=== PATIENT | male | born 1930 | race Caucasian/White ===

== ENCOUNTER 2019-10-15 07:44 | Emergency (ER) | payer OTHER ==
[~2019-10-15] VITALS: Ht 170.2 cm; Wt 99.8 kg
[~2019-10-15 07:44] MED LIST: ACET325 PO; ACET500 PO; ALBIPROI INH; AZIT500 PO; Belladonna-Opi1 EACH RC; CEFA500; CIPR500 PO; CODGUAEL PO; Ciprodex Otic7.5 ML RIGHTEAR; Colace100 MG PO; DOXY100; DOXY100T53 PO; ENABLEX PO; FINA5 PO; HYDGUAL120 PO; LEVSOD50 PO; MECL12.5 PO; METO25ER PO; METO50 PO; MULTIVITAMIN PO; MYRBETRIQ50 MG PO; NAPR220 PO; PSEU120ER PO; SOLI5 PO; Spironolactone1 EACH PO; Sudogest30 MG PO; TAMS.4ER; TRIA50 PO; TRIHYD253A PO; TRIHYD253B PO; Toviaz4 MG PO; Toviaz8 MG PO
[2019-10-15] MEDS ORDERED: Ventolin/Prove6.7 GM INH (08:06)
[2019-10-15 08:27] LABS: BASOPHILS ABSOLUTE AUTO 0.11 K/mm3 (0.00-0.23); BASOPHILS PERCENT AUTO 1 % (0-2); EOSINOPHILS ABSOLUTE AUTO 0.47 K/mm3 (0.00-0.68); EOSINOPHILS PERCENT AUTO 4 % (0-6); Hematocrit 48.9 % (37.0-53.0); Hemoglobin 15.9 g/dL (13.5-17.5); IMMATURE GRAN ABSOLUTE AUTO 0.07 K/mm3 (0.00-0.10); IMMATURE GRAN PERCENT AUTO 1 % (0-1); LYMPHOCYTES ABSOLUTE AUTO 3.33 K/mm3 (0.84-5.20); LYMPHOCYTES PERCENT AUTO 27 % (21-46); MONOCYTES PERCENT AUTO 9 % (4-13); Mean Corpuscular HGB 30.6 pg (26.0-34.0); Mean Corpuscular HGB Conc 32.5 g/dL (31.5-36.5); Mean Corpuscular Volume 94 fL (80-100); Mean Platelet Volume 9.2 fL (9.1-12.4); NEUTROPHILS ABSOLUTE AUTO 7.24 K/mm3 (1.96-9.15); NEUTROPHILS PERCENT AUTO 59 % (41-73); Platelet Count 245 K/mm3 (150-400); RDW Coefficient Variation 13.4 % (11.7-14.2); RDW Standard Deviation 46.2 fL (35.1-46.3); White Blood Cell Count 12.32 K/mm3 (4.00-11.30)
[2019-10-15 08:39] LABS: Alanine Aminotransfer (ALT/SGP 33 U/L (12-78); Albumin, Blood 3.7 g/dL (3.4-5.0); Alk Phos 73 U/L (50-136); Anion Gap 4 mmol/L (6-16); Aspartate Aminotrans (AST/SGOT 32 U/L (12-37); Bilirubin, Total 0.4 mg/dL (0.1-1.0); Blood Urea Nitrogen 21 mg/dL (8-24); Bun/Creatinine Ratio 21.7 (12.0-20.0); CO2, Blood 32 mmol/L (21-32); Calcium, Blood 8.6 mg/dL (8.5-10.1); Chloride, Blood 103 mmol/L (98-108); Creatinine, Blood 0.97 mg/dL (0.60-1.20); Globulin, Blood 3.8 g/dL (2.2-4.0); Glomerular Filtration Rate >60 (60-); Glucose, Blood 103 mg/dL (70-99); Potassium, Blood 4.3 mmol/L (3.5-5.5); Sodium, Blood 139 mmol/L (136-145); Total Protein, Blood 7.5 g/dL (6.4-8.2); Troponin I <0.015 ng/mL (0.000-0.040)
[2019-10-15] MEDS ORDERED: Prednisone20 MG PO (10:22)
== END 2019-10-15 10:31 | disposition home or self-care (01) ==
LOC: ER 07:44
PROVIDERS: Emergency Medicine
DX: J45.901 Unspecified asthma with (acute) exacerbation (principal); I10 Essential (primary) hypertension; E03.9 Hypothyroidism, unspecified; Z88.0 Allergy status to penicillin; Z79.899 Other long term (current) drug therapy; Z79.51 Long term (current) use of inhaled steroids
CPT/HCPCS: 36415; 71046; 80053; 84484; 85025; 93005; 93010; 94640; 94644; 96374; 99285-25; J2930

== ENCOUNTER 2019-10-16 21:40 | Inpatient (IN) | payer OTHER ==
[~2019-10-16] VITALS: Ht 170.2 cm; Wt 105.2 kg
[~2019-10-16 21:40] MED LIST changes: +Prednisone20 MG PO; +Ventolin/Prove6.7 GM INH
[2019-10-16 22:01] LABS: BASOPHILS ABSOLUTE AUTO 0.03 K/mm3 (0.00-0.23); BASOPHILS PERCENT AUTO 0 % (0-2); EOSINOPHILS ABSOLUTE AUTO 0.02 K/mm3 (0.00-0.68); EOSINOPHILS PERCENT AUTO 0 % (0-6); Hematocrit 44.7 % (37.0-53.0); Hemoglobin 14.4 g/dL (13.5-17.5); IMMATURE GRAN ABSOLUTE AUTO 0.28 K/mm3 (0.00-0.10); IMMATURE GRAN PERCENT AUTO 1 % (0-1); LYMPHOCYTES ABSOLUTE AUTO 1.53 K/mm3 (0.84-5.20); LYMPHOCYTES PERCENT AUTO 7 % (21-46); MONOCYTES ABSOLUTE AUTO 0.93 K/mm3 (0.16-1.47); MONOCYTES PERCENT AUTO 4 % (4-13); Mean Corpuscular HGB 29.9 pg (26.0-34.0); Mean Corpuscular HGB Conc 32.2 g/dL (31.5-36.5); Mean Corpuscular Volume 93 fL (80-100); Mean Platelet Volume 9.1 fL (9.1-12.4); NEUTROPHILS ABSOLUTE AUTO 20.17 K/mm3 (1.96-9.15); NEUTROPHILS PERCENT AUTO 88 % (41-73); Platelet Count 251 K/mm3 (150-400); RDW Coefficient Variation 13.6 % (11.7-14.2); RDW Standard Deviation 46.1 fL (35.1-46.3); Red Blood Cell Count 4.82 M/mm3 (4.30-5.90); White Blood Cell Count 22.96 K/mm3 (4.00-11.30)
[2019-10-16 22:16] LABS: Alanine Aminotransfer (ALT/SGP 36 U/L (12-78); Albumin, Blood 3.7 g/dL (3.4-5.0); Albumin/Globulin Ratio 1.1 (0.8-1.8); Alk Phos 49 U/L (50-136); Anion Gap 9 mmol/L (6-16); Aspartate Aminotrans (AST/SGOT 32 U/L (12-37); Bilirubin, Total 0.7 mg/dL (0.1-1.0); Blood Urea Nitrogen 23 mg/dL (8-24); Bun/Creatinine Ratio 22.8 (12.0-20.0); CO2, Blood 27 mmol/L (21-32); Calcium, Blood 8.5 mg/dL (8.5-10.1); Chloride, Blood 100 mmol/L (98-108); Creatinine, Blood 1.01 mg/dL (0.60-1.20); Globulin, Blood 3.5 g/dL (2.2-4.0); Glomerular Filtration Rate >60 (60-); Glucose, Blood 85 mg/dL (70-99); Sodium, Blood 136 mmol/L (136-145); Total Protein, Blood 7.2 g/dL (6.4-8.2); Troponin I <0.015 ng/mL (0.000-0.040)
[2019-10-16 22:41] LABS: PCO2 Arterial 32.8 mmHg (35-45); PO2 Arterial 54.5 mmHg (80-100); pH Blood Arterial 7.48 (7.35-7.45)
[2019-10-17 00:08] LABS: Influenza A Negative (NEGATIVE); Influenza B Negative (NEGATIVE)
[2019-10-17] MEDS ORDERED: MOTION RELIEF25 MG PO (01:53)
[2019-10-17] MEDS ORDERED: DOXY100 PO (01:57)
[2019-10-17] MEDS ORDERED: PHENERGAN/CODEINE PO (01:59)
[2019-10-17] MEDS ORDERED: METO50 PO (02:00)
[2019-10-17 02:33] LABS: BASOPHILS ABSOLUTE AUTO 0.05 K/mm3 (0.00-0.23); BASOPHILS PERCENT AUTO 0 % (0-2); EOSINOPHILS PERCENT AUTO 0 % (0-6); Hematocrit 42.3 % (37.0-53.0); Hemoglobin 14.1 g/dL (13.5-17.5); IMMATURE GRAN ABSOLUTE AUTO 0.75 K/mm3 (0.00-0.10); IMMATURE GRAN PERCENT AUTO 3 % (0-1); LYMPHOCYTES ABSOLUTE AUTO 1.55 K/mm3 (0.84-5.20); LYMPHOCYTES PERCENT AUTO 7 % (21-46); MONOCYTES ABSOLUTE AUTO 1.61 K/mm3 (0.16-1.47); MONOCYTES PERCENT AUTO 7 % (4-13); Mean Corpuscular HGB 30.8 pg (26.0-34.0); Mean Corpuscular HGB Conc 33.3 g/dL (31.5-36.5); Mean Corpuscular Volume 92 fL (80-100); NEUTROPHILS ABSOLUTE AUTO 18.95 K/mm3 (1.96-9.15); NEUTROPHILS PERCENT AUTO 83 % (41-73); Platelet Count 211 K/mm3 (150-400); RDW Coefficient Variation 13.7 % (11.7-14.2); RDW Standard Deviation 46.6 fL (35.1-46.3); Red Blood Cell Count 4.58 M/mm3 (4.30-5.90); White Blood Cell Count 22.91 K/mm3 (4.00-11.30)
[2019-10-17 02:49] LABS: Anion Gap 9 mmol/L (6-16); Blood Urea Nitrogen 23 mg/dL (8-24); Bun/Creatinine Ratio 22.1 (12.0-20.0); CO2, Blood 24 mmol/L (21-32); Calcium, Blood 7.7 mg/dL (8.5-10.1); Chloride, Blood 104 mmol/L (98-108); Creatinine, Blood 1.04 mg/dL (0.60-1.20); Glomerular Filtration Rate >60 (60-); Glucose, Blood 104 mg/dL (70-99); Potassium, Blood 3.3 mmol/L (3.5-5.5); Sodium, Blood 137 mmol/L (136-145)
[2019-10-17 03:57] LABS: Adenovirus Not Detected (NOT DETECT); Bordetella pertussis Not Detected (NOT DETECT); Chlamydophila pneumoniae Not Detected (NOT DETECT); Coronavirus 229E Not Detected (NOT DETECT); Coronavirus HKU1 Not Detected (NOT DETECT); Coronavirus NL63 Not Detected (NOT DETECT); Coronavirus OC43 Not Detected (NOT DETECT); Human Metapneumovirus Not Detected (NOT DETECT); Human Rhinovirus/Enterovirus Not Detected (NOT DETECT); Influenza A Not Detected (NOT DETECT); Influenza A/2009-H1 Not Detected (NOT DETECT); Influenza A/H1 Not Detected (NOT DETECT); Influenza A/H3 Not Detected (NOT DETECT); Influenza B Not Detected (NOT DETECT); Mycoplasma pneumoniae Not Detected (NOT DETECT); Parainfluenza Virus 1 Not Detected (NOT DETECT); Parainfluenza Virus 2 Not Detected (NOT DETECT); Parainfluenza Virus 3 Not Detected (NOT DETECT); Parainfluenza Virus 4 Not Detected (NOT DETECT); Respiratory Syncytial Virus Not Detected (NOT DETECT)
--- NOTE | 2019-10-17 05:59 | NUR ---
END OF SHIFT SUMMARY PT TO UNIT FROM ED. VISIBLY SOB WITH COUGHING. RT TO ROOM FOR ALBUTEROL TREATMENT. FLUIDS RUNNING WO UPON ADMISSION, NO ORDERS PLACED FOR CONTINUED FLUIDS AFTER THAT 2ND LITER OF NS. IV SL. VSS POST ADMIT. ADMISSION PACKET COMPLETED. DNR BAND IN PLACE. PT HAS REMAINED ON RA, SPO2 >94%. LACTIC ACID TRENDING DOWN. RESP PCR PANEL OBTAINED, NEGATIVE. PT IS KNOWN TO ASPIRATE PER DAUGHTER, WILL DISCUSS WITH ONCOMING RN. DAUGHTER IN ROOM FOR ADMISSION, ASSISTED WITH THIS PROCESS. WILL BE RETURNING LATER TODAY. PT DOES NOT USE CALL LIGHT APPROPRIATELY AND IMPULSIVELY GETS OUT OF BED, BED ALARM IN PLACE. WILL CONTINUE TO MONITOR UNTIL SHIFT CHANGE.
--- NOTE | 2019-10-17 06:50 | NUR ---
PROVIDER DR. CLAIRE TO ROOM. VOICED CONCERN REGARDING DAUGHTER STATING PT HAD BARIUM SWALLOW THAT SHOWED THAT THE PT SILENTLY ASPIRATES, ASKED PROVIDER IF HE WANTED SPEECH EVAL. DECLINES BUT PLACES NURSE NOTIFY TO HAVE PT UPRIGHT WHILE EATING/DRINKING. ORDERS ALSO PLACED FOR NEW LACTIC ACID LAB.
--- NOTE | 2019-10-17 12:58 | NUR ---
Spiritual care visit conducted. Patient is lying in bed and alert. Patient's spouse, Aniyah is bedside. Patient is quiet and not very talkative but Aniyah is a little more communative. They tell me about their janelle (they attended the [employer], [facility]) and about the patient's current medical issues. I listen empathically and provide prayer. Patient and Aniyah respond well and thank me for the visit.
--- NOTE | 2019-10-17 15:45 | NUR ---
Brief visit this afternoon. Pt resting in bed with his eyes closed upon arrival. Pt wakes with gentle voice. Pt deneis pain and dyspnea at this time. Pt appears comfortable with no S/S of distress. Pt requests visit occured at a later time and states he is feeling tired and has visitors all day. Pt agreeable with visit later today or tomorrow. Spoke with bedside MAXIMO Luis and discussed case. Paliative Care will remain available.
--- NOTE | 2019-10-17 18:13 | NUR ---
SHIFT NOTE PT'S LACTIC ACID HAS NOTED TO HAVE INCREASED T/O THIS SHIFT, DR CLAIRE IS INFORMED OF LACTIC ACID AND THAT VITAL SIGNS ARE CURRENTLY STABLE, NEW ORDER OBTAINED FOR NS AT 150/HR AND REPEAT LACTIC AT 1800. PT STS THAT HE DOES NOT FEEL ANY DIFFERENT, STS THAT HE IS NO MORE SOB THAN HE HAS BEEN. NOTED WHEEZE PRIOR TO BEGINING FLUIDS. FAMILY ARRIVES AROUND 1700 EXPRESSED CONCERN THAT PT IS NOT ON OXYGEN, FAMILY DID NOT SEEM RECEPTIVE OF EDUCATION AND THEN QUESTIONED DR CLAIRE ABOUT ORDERS, THERE WAS NO ORDERS FROM DR CLAIRE TO ADMNINISTER OXYGEN. WILL UPDATE RT WITH NEW BNP RESULTS AND LACTIC ONCE RESULTS FROM 1800 DRAW HAVE RETURNED
[2019-10-18 05:09] LABS: BASOPHILS ABSOLUTE AUTO 0.03 K/mm3 (0.00-0.23); BASOPHILS PERCENT AUTO 0 % (0-2); EOSINOPHILS PERCENT AUTO 0 % (0-6); Hematocrit 39.3 % (37.0-53.0); Hemoglobin 12.8 g/dL (13.5-17.5); IMMATURE GRAN ABSOLUTE AUTO 0.49 K/mm3 (0.00-0.10); IMMATURE GRAN PERCENT AUTO 2 % (0-1); LYMPHOCYTES ABSOLUTE AUTO 0.94 K/mm3 (0.84-5.20); LYMPHOCYTES PERCENT AUTO 5 % (21-46); MONOCYTES ABSOLUTE AUTO 0.58 K/mm3 (0.16-1.47); MONOCYTES PERCENT AUTO 3 % (4-13); Mean Corpuscular HGB 30.1 pg (26.0-34.0); Mean Corpuscular HGB Conc 32.6 g/dL (31.5-36.5); Mean Corpuscular Volume 93 fL (80-100); Mean Platelet Volume 9.2 fL (9.1-12.4); NEUTROPHILS ABSOLUTE AUTO 18.39 K/mm3 (1.96-9.15); NEUTROPHILS PERCENT AUTO 90 % (41-73); Platelet Count 202 K/mm3 (150-400); RDW Coefficient Variation 13.7 % (11.7-14.2); RDW Standard Deviation 46.5 fL (35.1-46.3); Red Blood Cell Count 4.25 M/mm3 (4.30-5.90); White Blood Cell Count 20.43 K/mm3 (4.00-11.30)
--- NOTE | 2019-10-18 05:20 | NUR ---
END OF SHIFT SUMMARY NO ACUTE CHANGES THIS SHIFT. VSS. PT REMAINS ON RA, UPPER WHEEZES AND SOB WITH EXERTION BUT MANAGES TO STAND AND AMBULATE WITH LITTLE HELP FROM STAFF. FLUIDS CONTINUE TOINFUSE AT 150 ORDERED. 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 P HAS HAD TO BE CHANGES MULTIPLE TIME DUE TO VOIDING ON SELF BEFORE HE COULD GET TO URINAL OR FUMBLES WITH LID ON URINAL. DESPITE THIS, PT REMAINS PLEASNT AND COOPERATIVE. HAS HAD SCHEDULED RT TREATMENTS AD HAS OT REQUIRED ANY PRN'S. OTHERWISE, BED ALARM IN PLACE AND WILL CONTINUE TO MONITOR UNTIL SHIFT CHANGE.
[2019-10-18 05:27] LABS: Anion Gap 7 mmol/L (6-16); Blood Urea Nitrogen 20 mg/dL (8-24); Bun/Creatinine Ratio 25.8 (12.0-20.0); CO2, Blood 24 mmol/L (21-32); Calcium, Blood 7.8 mg/dL (8.5-10.1); Chloride, Blood 105 mmol/L (98-108); Creatinine, Blood 0.78 mg/dL (0.60-1.20); Glomerular Filtration Rate >60 (60-); Glucose, Blood 179 mg/dL (70-99); Potassium, Blood 3.8 mmol/L (3.5-5.5); Sodium, Blood 136 mmol/L (136-145)
--- NOTE | 2019-10-18 08:12 | NUR ---
Assisted pt out of bed for breakfast, to sit in the chair. Chair alarm on. He is pleasant and compliant, states that he is having shortness of breath with activity. None noted at rest. Encouraged oral intake of fluids, and deep breathing and coughing. NO productive cough as yet.
--- NOTE | 2019-10-18 09:08 | NUR ---
The pt called to request help from moving from the chair to the bed, to avoid setting the chair alarm off. He was assisted back to bed, simply minimal assistance needed. Telemetry box was removed, and scrap charger notified of status change.
--- NOTE | 2019-10-18 09:26 | NUR ---
Pt resting in bed with his eyes closed. No response with moderate level voice. This RN did not attempt to disturb Pt any further. Pt appears comfortable with no S/S of distress at this time. Spoke with bedside RN Bárbara and discussed case. Palliative Care will remain available.
--- NOTE | 2019-10-18 10:59 | NUR ---
Received call from bedside RN Bárbara and reports Pt would like to complete a POLST. Pt sitting on edge of bed upon arrival. Daughter in law Lily at bedside. Pt and daughter in law confirm Pt would like to complete a POLST. Educated on life sustaining measures with V/U made by Pt and Lily. Pt chooses DNR, Limited Treatment and signs POLST. Placed POLST on Pt's white board for Dr Dang to sign when making rounds. Pt reports SOB and is requesting a breathing treatment. FINANCIAL BUSINESS ANALYST calls RT. No other concerns reported at this time. Once POLST has MD signature will obtain copies for medical records and family. Palliative Care will remain available.
--- NOTE | 2019-10-18 12:10 | NUR ---
Telephone report was given to Peyton Muniz RN. The pt will be transferred to room 336 as soon as he is finished eating his lunch.
--- NOTE | 2019-10-18 12:27 | NUR ---
PT WAS TAKEN UP TO MEDICAL FLOOR AT THIS TIME, BY ISMAEL QUINONEZ. PT TRANSPORTED BY WHEELCHAIR.
--- NOTE | 2019-10-18 12:36 | NUR ---
ASSUMED CARE: RECEIVED REPORT FROM MAXIMO PENA. PT TRANSFERRED TO 336 FROM PCU VIA WHEEL CHAIR. IN BED, BED ALARM ON. DENIES NEEDS AT THIS TIME.
--- NOTE | 2019-10-18 16:21 | NUR ---
ASSUMED CARE OF PATIENT, FAMILY AT BEDSIDE FOR PORTION OF SHIFT. PATIENT UP FOR MEALS IN CHAIR, REMAINING UPRIGHT IN CHAIR POST MEALS FOR 30 MINUTES. PATIENT LUNGS ARE DIM AND WHEEZY AND PATIENT REPORTED FEELING TIRED AFTER GETTING UP AND GETTING A SHOWER. PATIENT IS A/O WITH BED AND CHAIR ALARMS TO REDUCE RISK OF FALL.
--- NOTE | 2019-10-18 17:54 | NUR ---
SHIFT SUMMARY ASSUMED CARE OF PATIENT MIDWAY THROUGH SHIFT. PATIENT RECEIVED SHOWER AND REPORTED SOB POST ACTIVITY. VS APPEAR STABLE AT THIS TIME. PROVIDER REQUESTED PATIENT BE UP IN CHAIR FOR MEALS AND TO AMBULATE TOLERATED.
--- NOTE | 2019-10-18 18:40 | NUR ---
DISCUSSED WITH PT NEED FOR NEW IV DUE TO [facility] START SITE THAT HAS BEEN IN SINCE THE . PT DECLINED SINCE HE MAY BE DC'ING TOMORROW. BED ALARM ON.
--- NOTE | 2019-10-19 17:22 | NUR ---
SHIFT SUMMARY PATIENT A/O. FAMILY AT BEDSIDE. PATIENT UP IN CHAIR FOR ALL MEALS. REPORTS IMPROVED BREATHING FROM BREATHING TRX AND ONLY REPORTING SOB POST ACTIVITY. PATIENT ENCOURAGED TO DRINK FLUIDS UP TO 2000 ML FOR 24 HR PERIOD. VS IMPROVING. PROVIDER THOUGHT PATIENT MAY BE ABLE TO D/C FROM HOSPITAL TOMORROW IF VS CONTINUE TO IMPROVE.
--- NOTE | 2019-10-20 00:11 | NUR ---
PATIENT STATES HE SEES SMOKE COMING OUT OF THE SMOKE DETECTOR IN HIS ROOM. CHECKED OZ SATS - 95% ORA. BED LOW AND LOCKED AND ALARMED. MADE AWARE.
[2019-10-20 05:13] LABS: BASOPHILS ABSOLUTE AUTO 0.08 K/mm3 (0.00-0.23); BASOPHILS PERCENT AUTO 1 % (0-2); EOSINOPHILS PERCENT AUTO 0 % (0-6); Hematocrit 39.2 % (37.0-53.0); IMMATURE GRAN ABSOLUTE AUTO 0.38 K/mm3 (0.00-0.10); IMMATURE GRAN PERCENT AUTO 3 % (0-1); LYMPHOCYTES ABSOLUTE AUTO 1.34 K/mm3 (0.84-5.20); LYMPHOCYTES PERCENT AUTO 9 % (21-46); MONOCYTES ABSOLUTE AUTO 0.58 K/mm3 (0.16-1.47); MONOCYTES PERCENT AUTO 4 % (4-13); Mean Corpuscular HGB Conc 33.2 g/dL (31.5-36.5); Mean Corpuscular Volume 91 fL (80-100); Mean Platelet Volume 9.5 fL (9.1-12.4); NEUTROPHILS ABSOLUTE AUTO 11.88 K/mm3 (1.96-9.15); NEUTROPHILS PERCENT AUTO 83 % (41-73); Platelet Count 250 K/mm3 (150-400); RDW Coefficient Variation 13.5 % (11.7-14.2); RDW Standard Deviation 45.1 fL (35.1-46.3); Red Blood Cell Count 4.33 M/mm3 (4.30-5.90); White Blood Cell Count 14.26 K/mm3 (4.00-11.30)
--- NOTE | 2019-10-20 07:25 | NUR ---
PT AOX4 THIS MORNING. DR CLAIRE WAS IN TO SEE HIM AND DISCUSSED D/C PLANS. PASSED INFO TO DAY RN.
[2019-10-20] MEDS ORDERED: Prednisone10 MG PO (09:54)
[2019-10-20] MEDS ORDERED: CEFP200 PO (09:56)
[2019-10-20] MEDS ORDERED: ALBU3IS INH (09:57)
[2019-10-20] MEDS ORDERED: ACET325 PO (10:02)
--- NOTE | 2019-10-20 10:10 | NUR ---
PROVIDER NOTIFICATION OBSERVED PATIENT DURING MEALTIME COUGHING. PROVIDER NOTIFIED BY PHONE. PROVIDER REQUESTED SPEECH EVAL DURING HOSPITAL STAY A VERBAL ORDER. SPEECH EVAL COMPLETED. THIS IS LATE ENTRY FROM THIS AM.
--- NOTE | 2019-10-20 10:23 | NUR ---
PER PHARMACY, OKY TO RUN ABX NOW.
--- NOTE | 2019-10-20 11:49 | NUR ---
DISCHARGE DISCHARGE INSTRUCTIONS PRESENTED TO PATIENT/FAMILY. FAMILY REQUESTED TO MAKE FOLLOW UP APPT ON OWN. PATIENT WHEELED OUT BY WC AND BY CAR FROM HOSPITAL. IV REMOVED. NO CHANGES IN ASSESSMENT PRIOR TO D/C.
== END 2019-10-20 11:50 | disposition home or self-care (01) | DRG 871 ==
LOC: ER 21:40 → PCU 23:21 → ER 23:21 → PCU 10-17 00:06 → MEDS 10-18 12:32 → PCU 10-18 12:32 → MEDS 10-18 12:32 → ENPENDDIS 10-20 07:00 → MEDS 10-20 11:50
PROVIDERS: Emergency Medicine; Internal Medicine; ADMIT Hospitalist
DX: A41.9 Sepsis, unspecified organism (principal); J18.9 Pneumonia, unspecified organism; J96.01 Acute respiratory failure with hypoxia; E87.2 Acidosis; J45.901 Unspecified asthma with (acute) exacerbation; E66.3 Overweight; E03.9 Hypothyroidism, unspecified; I10 Essential (primary) hypertension; N40.1 Benign prostatic hyperplasia with lower urinary tract symptoms; N39.41 Urge incontinence; E86.0 Dehydration; C61 Malignant neoplasm of prostate; Z88.0 Allergy status to penicillin; Z68.34 Body mass index [BMI] 34.0-34.9, adult
CPT/HCPCS: 0099U; 36415; 36600; 71046; 80048; 80053; 82803; 83605; 83735; 83880; 84145; 84484; 85025; 87040; 87804; 92610; 93005; 93010; 94640; 94760; 96365; 96367; 99285-25; J0456; J0696; J1650; J2930; J7030; J7050; J7512

== ENCOUNTER 2019-11-18 05:44 | Observation (INO) | payer OTHER ==
[~2019-11-18] VITALS: Ht 170.2 cm; Wt 110.5 kg
[~2019-11-18 05:44] MED LIST changes: +ALBU3IS INH; +CEFP200 PO; +DOXY100 PO; +MOTION RELIEF25 MG PO; +PHENERGAN/CODEINE PO; +Prednisone10 MG PO
[2019-11-18 06:15] LABS: BASOPHILS ABSOLUTE AUTO 0.05 K/mm3 (0.00-0.23); BASOPHILS PERCENT AUTO 1 % (0-2); EOSINOPHILS ABSOLUTE AUTO 0.41 K/mm3 (0.00-0.68); EOSINOPHILS PERCENT AUTO 6 % (0-6); Hematocrit 42.8 % (37.0-53.0); Hemoglobin 14.4 g/dL (13.5-17.5); IMMATURE GRAN ABSOLUTE AUTO 0.06 K/mm3 (0.00-0.10); IMMATURE GRAN PERCENT AUTO 1 % (0-1); LYMPHOCYTES ABSOLUTE AUTO 3.16 K/mm3 (0.84-5.20); LYMPHOCYTES PERCENT AUTO 47 % (21-46); MONOCYTES ABSOLUTE AUTO 0.67 K/mm3 (0.16-1.47); MONOCYTES PERCENT AUTO 10 % (4-13); Mean Corpuscular HGB 30.6 pg (26.0-34.0); Mean Corpuscular HGB Conc 33.6 g/dL (31.5-36.5); Mean Corpuscular Volume 91 fL (80-100); Mean Platelet Volume 8.6 fL (9.1-12.4); NEUTROPHILS PERCENT AUTO 36 % (41-73); Platelet Count 229 K/mm3 (150-400); RDW Coefficient Variation 13.3 % (11.7-14.2); RDW Standard Deviation 45.1 fL (35.1-46.3); White Blood Cell Count 6.75 K/mm3 (4.00-11.30)
[2019-11-18 06:42] LABS: Alanine Aminotransfer (ALT/SGP 30 U/L (12-78); Albumin, Blood 3.4 g/dL (3.4-5.0); Albumin/Globulin Ratio 0.9 (0.8-1.8); Anion Gap 6 mmol/L (6-16); Aspartate Aminotrans (AST/SGOT 24 U/L (12-37); Bilirubin, Total 0.4 mg/dL (0.1-1.0); Blood Urea Nitrogen 18 mg/dL (8-24); Bun/Creatinine Ratio 20.4 (12.0-20.0); CO2, Blood 24 mmol/L (21-32); Calcium, Blood 8.3 mg/dL (8.5-10.1); Chloride, Blood 107 mmol/L (98-108); Creatinine, Blood 0.88 mg/dL (0.60-1.20); Globulin, Blood 3.6 g/dL (2.2-4.0); Glomerular Filtration Rate >60 (60-); Glucose, Blood 98 mg/dL (70-99); Potassium, Blood 4.1 mmol/L (3.5-5.5); Sodium, Blood 137 mmol/L (136-145)
[2019-11-18 06:43] LABS: Alk Phos 73 U/L (50-136)
--- NOTE | 2019-11-18 12:55 | NUR ---
Dr Borja assessed the pt and stated that the shingles lesions are dry, crusted over, and no longer active. Marie in Infection Control was notified and the isolation order was entered to reflect the appropriate precautions.
[2019-11-18] MEDS ORDERED: Norco 5-325 Ta1 EACH PO (16:50)
[2019-11-18] MEDS ORDERED: COMBIVENT RESPIM4 GM INH (17:08)
[2019-11-18] MEDS ORDERED: Toviaz8 MG PO (17:16)
[2019-11-18] MEDS ORDERED: MONT10T PO (17:16)
[2019-11-18] MEDS ORDERED: VALA500 PO (17:17)
--- NOTE | 2019-11-18 21:47 | NUR ---
CARE ASSUMPTION PT MEDICAL W/ TELE STATUS. A&O X4. VSS. MONITOR SHOWS ST, HR 110's-120's. LUNG SOUNDS DIM T/O. SPO2 > 92% ON RA. BIPAP 10/07, FIO2 30% AT BEDSIDE. PT SITTING UP IN CHAIR. DENIES PAIN/DISCOMFORT. REPORT OF SHINGLES W/ SCABS NOTED SCATTERED T/O BACK & CHEST. PT DENIES PAIN/DISCOMFORT "EXCEPT FOR WHEN I COUGH. IT HURTS IN MY CHEST WHEN I COUGH." PT REPORTS COUGH OCCASSIONAL W/ "SOME" PRODUCTIVITY, UNABLE TO STATE APPEARANCE OF SPUTUM. WILL CONTINUE TO MONITOR AND PROVIDE CARE.
--- NOTE | 2019-11-19 07:10 | NUR ---
SHIFT SUMMARY PT MEDICAL W/ TELE STATUS. A&O X4 W/ FLAT AFFECT. VSS. MONITOR SHOWS SR-ST, HR 80's-120's. SPO2 > 92% ON RA. SHINGLES W/ SCABS NOTED SCATTERED T/O BACK & CHEST. PT SBA W/ FWW. PT EAGER TO DISCHARGE HOME. REPORT GIVEN TO DAY SHIFT RN.
[2019-11-19] MEDS ORDERED: PRED20 PO (13:15)
--- NOTE | 2019-11-19 13:50 | NUR ---
DISCHARGE PAPERWORK GONE OVER WITH PT. PT WAS INSTRUCTED ON HOW TO OBTAIN NEW MEDICATIONS AND WHAT HE'S TO CONTINUE TAKING. ALL QUESTIONS ANSWERED. BELONGINGS GATHERED AND GIVEN TO PT. PT WAS ESCORTED OUT VIA W/C BY GONSALO JUDGE AND FAMILY.
== END 2019-11-19 13:54 | disposition home or self-care (01) ==
LOC: ER 05:44 → PCU 05:45
PROVIDERS: Emergency Medicine; ADMIT Internal Medicine
DX: J45.901 Unspecified asthma with (acute) exacerbation (principal); G47.33 Obstructive sleep apnea (adult) (pediatric); N40.0 Benign prostatic hyperplasia without lower urinary tract symptoms; I10 Essential (primary) hypertension; E78.5 Hyperlipidemia, unspecified; E03.9 Hypothyroidism, unspecified; M19.90 Unspecified osteoarthritis, unspecified site; E66.9 Obesity, unspecified; Z68.34 Body mass index [BMI] 34.0-34.9, adult; Z79.51 Long term (current) use of inhaled steroids; Z79.52 Long term (current) use of systemic steroids; Z79.899 Other long term (current) drug therapy; Z88.0 Allergy status to penicillin; Z88.8 Allergy status to other drugs, medicaments and biological substances; Z66 Do not resuscitate; Z87.01 Personal history of pneumonia (recurrent); Z86.19 Personal history of other infectious and parasitic diseases; Z85.46 Personal history of malignant neoplasm of prostate; Z90.79 Acquired absence of other genital organ(s)
CPT/HCPCS: 71046; 80053; 83880; 84484; 85025; 93005; 93010; 93306; 94640; 94644; 94660; 94760; 96372; 96374; 97110; 97112; 97162; 99285-25; G0378; J1650; J2930; J7512

== ENCOUNTER → 2019-12-07 | Outpatient (CLI) | payer OTHER ==
[~2019-12-07] MED LIST changes: +COMBIVENT RESPIM4 GM INH; +MONT10T PO; +Norco 5-325 Ta1 EACH PO; +PRED20 PO; +VALA500 PO
[2019-12-07 10:44] LABS: BASOPHILS ABSOLUTE AUTO 0.09 K/mm3 (0.00-0.23); BASOPHILS PERCENT AUTO 1 % (0-2); EOSINOPHILS PERCENT AUTO 3 % (0-6); Hematocrit 44.2 % (37.0-53.0); Hemoglobin 15.1 g/dL (13.5-17.5); IMMATURE GRAN ABSOLUTE AUTO 0.05 K/mm3 (0.00-0.10); IMMATURE GRAN PERCENT AUTO 1 % (0-1); LYMPHOCYTES ABSOLUTE AUTO 2.36 K/mm3 (0.84-5.20); LYMPHOCYTES PERCENT AUTO 26 % (21-46); MONOCYTES ABSOLUTE AUTO 0.85 K/mm3 (0.16-1.47); MONOCYTES PERCENT AUTO 9 % (4-13); Mean Corpuscular HGB 30.7 pg (26.0-34.0); Mean Corpuscular HGB Conc 34.2 g/dL (31.5-36.5); Mean Corpuscular Volume 90 fL (80-100); Mean Platelet Volume 9.3 fL (9.1-12.4); NEUTROPHILS ABSOLUTE AUTO 5.36 K/mm3 (1.96-9.15); NEUTROPHILS PERCENT AUTO 60 % (41-73); Platelet Count 277 K/mm3 (150-400); RDW Coefficient Variation 14.3 % (11.7-14.2); RDW Standard Deviation 46.8 fL (35.1-46.3); Red Blood Cell Count 4.92 M/mm3 (4.30-5.90); White Blood Cell Count 9.01 K/mm3 (4.00-11.30)
[2019-12-07 10:59] LABS: Alanine Aminotransfer (ALT/SGP 24 U/L (12-78); Albumin, Blood 3.6 g/dL (3.4-5.0); Albumin/Globulin Ratio 0.9 (0.8-1.8); Alk Phos 62 U/L (40-126); Anion Gap 9 mmol/L (6-16); Aspartate Aminotrans (AST/SGOT 26 U/L (12-37); Bilirubin, Total 0.9 mg/dL (0.1-1.0); Blood Urea Nitrogen 9 mg/dL (8-24); Bun/Creatinine Ratio 8.7 (12.0-20.0); CO2, Blood 27 mmol/L (21-32); Calcium, Blood 8.7 mg/dL (8.5-10.1); Chloride, Blood 96 mmol/L (98-108); Creatinine, Blood 1.03 mg/dL (0.60-1.20); Globulin, Blood 3.9 g/dL (2.2-4.0); Glomerular Filtration Rate >60 (60-); Glucose, Blood 120 mg/dL (70-99); Potassium, Blood 3.6 mmol/L (3.5-5.5); Sodium, Blood 132 mmol/L (136-145); Total Protein, Blood 7.5 g/dL (6.4-8.2)
== END | disposition home or self-care (01) ==
LOC: LAB EV 10:41 → LAB SHORT 10:41
PROVIDERS: Family Medicine
DX: J18.0 Bronchopneumonia, unspecified organism (principal)
CPT/HCPCS: 80053; 85025

== ENCOUNTER → 2020-01-05 | Outpatient (CLI) | payer OTHER ==
[2020-01-05 10:56] LABS: BASOPHILS ABSOLUTE AUTO 0.09 K/mm3 (0.00-0.23); BASOPHILS PERCENT AUTO 1 % (0-2); EOSINOPHILS ABSOLUTE AUTO 0.42 K/mm3 (0.00-0.68); EOSINOPHILS PERCENT AUTO 5 % (0-6); Hemoglobin 15.1 g/dL (13.5-17.5); IMMATURE GRAN ABSOLUTE AUTO 0.05 K/mm3 (0.00-0.10); IMMATURE GRAN PERCENT AUTO 1 % (0-1); LYMPHOCYTES ABSOLUTE AUTO 2.78 K/mm3 (0.84-5.20); LYMPHOCYTES PERCENT AUTO 32 % (21-46); MONOCYTES PERCENT AUTO 9 % (4-13); Mean Corpuscular HGB 31.5 pg (26.0-34.0); Mean Corpuscular HGB Conc 33.6 g/dL (31.5-36.5); Mean Corpuscular Volume 94 fL (80-100); Mean Platelet Volume 9.7 fL (9.1-12.4); NEUTROPHILS ABSOLUTE AUTO 4.52 K/mm3 (1.96-9.15); NEUTROPHILS PERCENT AUTO 52 % (41-73); Platelet Count 293 K/mm3 (150-400); RDW Coefficient Variation 14.5 % (11.7-14.2); RDW Standard Deviation 50.2 fL (35.1-46.3); White Blood Cell Count 8.66 K/mm3 (4.00-11.30)
== END | disposition home or self-care (01) ==
LOC: LAB EV 10:51 → LAB SHORT 10:51
PROVIDERS: Family Medicine
DX: T78.8XXA Other adverse effects, not elsewhere classified, initial encounter (principal)
CPT/HCPCS: 85025

== ENCOUNTER → 2020-09-10 | Outpatient (CLI) | payer OTHER ==
[2020-09-10 11:56] LABS: BASOPHILS ABSOLUTE AUTO 0.09 K/mm3 (0.00-0.23); BASOPHILS PERCENT AUTO 1 % (0-2); EOSINOPHILS ABSOLUTE AUTO 0.15 K/mm3 (0.00-0.68); EOSINOPHILS PERCENT AUTO 2 % (0-6); Hematocrit 47.6 % (37.0-53.0); Hemoglobin 15.9 g/dL (13.5-17.5); IMMATURE GRAN ABSOLUTE AUTO 0.04 K/mm3 (0.00-0.10); IMMATURE GRAN PERCENT AUTO 1 % (0-1); LYMPHOCYTES ABSOLUTE AUTO 2.62 K/mm3 (0.84-5.20); LYMPHOCYTES PERCENT AUTO 31 % (21-46); MONOCYTES ABSOLUTE AUTO 0.66 K/mm3 (0.16-1.47); MONOCYTES PERCENT AUTO 8 % (4-13); Mean Corpuscular HGB 29.7 pg (26.0-34.0); Mean Corpuscular HGB Conc 33.4 g/dL (31.5-36.5); Mean Corpuscular Volume 89 fL (80-100); NEUTROPHILS ABSOLUTE AUTO 5.02 K/mm3 (1.96-9.15); NEUTROPHILS PERCENT AUTO 59 % (41-73); Platelet Count 233 K/mm3 (150-400); RDW Coefficient Variation 13.4 % (11.7-14.2); RDW Standard Deviation 43.6 fL (35.1-46.3); Red Blood Cell Count 5.36 M/mm3 (4.30-5.90); White Blood Cell Count 8.58 K/mm3 (4.00-11.30)
[2020-09-10 12:10] LABS: Alanine Aminotransfer (ALT/SGP 30 U/L (12-78); Albumin, Blood 3.8 g/dL (3.4-5.0); Albumin/Globulin Ratio 1.1 (0.8-1.8); Alk Phos 67 U/L (40-126); Anion Gap 6 mmol/L (6-16); Aspartate Aminotrans (AST/SGOT 26 U/L (12-37); Bilirubin, Total 0.5 mg/dL (0.1-1.0); Blood Urea Nitrogen 19 mg/dL (8-24); Bun/Creatinine Ratio 18.6 (12.0-20.0); CO2, Blood 32 mmol/L (21-32); Calcium, Blood 9.1 mg/dL (8.5-10.1); Chloride, Blood 100 mmol/L (98-108); Creatinine, Blood 1.02 mg/dL (0.60-1.20); Globulin, Blood 3.6 g/dL (2.2-4.0); Glomerular Filtration Rate >60 (60-); Glucose, Blood 125 mg/dL (70-99); Sodium, Blood 138 mmol/L (136-145); Total Protein, Blood 7.4 g/dL (6.4-8.2)
[2020-09-10 12:12] LABS: Troponin I <0.017 ng/mL (0.000-0.040)
== END | disposition home or self-care (01) ==
LOC: LAB SHORT 11:36 → LAB EV 11:36
PROVIDERS: Physician Assistant
DX: R06.02 Shortness of breath (principal)
CPT/HCPCS: 80053; 83880; 84484; 85025

== ENCOUNTER → 2020-10-10 | Outpatient (CLI) | payer OTHER | END | disposition home or self-care (01) | LOC: PLD 12:34 → LAB SHORT 12:34 | DX: L57.0 Actinic keratosis (principal) | CPT/HCPCS: 88305 ==

== ENCOUNTER 2021-04-14 | Emergency (ER) | payer OTHER ==
[~2021-04-14] VITALS: Ht 170.2 cm; Wt 90.7 kg
[2021-04-14 01:50] LABS: BASOPHILS ABSOLUTE AUTO 0.06 K/mm3 (0.00-0.23); BASOPHILS PERCENT AUTO 1 % (0-2); EOSINOPHILS ABSOLUTE AUTO 0.05 K/mm3 (0.00-0.68); EOSINOPHILS PERCENT AUTO 1 % (0-6); Hematocrit 44.2 % (37.0-53.0); Hemoglobin 14.9 g/dL (13.5-17.5); IMMATURE GRAN ABSOLUTE AUTO 0.07 K/mm3 (0.00-0.10); IMMATURE GRAN PERCENT AUTO 1 % (0-1); LYMPHOCYTES ABSOLUTE AUTO 1.74 K/mm3 (0.84-5.20); LYMPHOCYTES PERCENT AUTO 21 % (21-46); MONOCYTES ABSOLUTE AUTO 0.68 K/mm3 (0.16-1.47); MONOCYTES PERCENT AUTO 8 % (4-13); Mean Corpuscular HGB 30.1 pg (26.0-34.0); Mean Corpuscular HGB Conc 33.7 g/dL (31.5-36.5); Mean Corpuscular Volume 89 fL (80-100); Mean Platelet Volume 9.3 fL (9.1-12.4); NEUTROPHILS ABSOLUTE AUTO 5.74 K/mm3 (1.96-9.15); NEUTROPHILS PERCENT AUTO 69 % (41-73); Platelet Count 242 K/mm3 (150-400); RDW Coefficient Variation 13.4 % (11.7-14.2); RDW Standard Deviation 43.7 fL (35.1-46.3); Red Blood Cell Count 4.95 M/mm3 (4.30-5.90); White Blood Cell Count 8.34 K/mm3 (4.00-11.30)
[2021-04-14 01:52] LABS: Anion Gap 6 mmol/L (6-16); Blood Urea Nitrogen 15 mg/dL (8-24); Bun/Creatinine Ratio 15.2 (12.0-20.0); CO2, Blood 27 mmol/L (21-32); Calcium, Blood 8.3 mg/dL (8.5-10.1); Chloride, Blood 105 mmol/L (98-108); Creatinine, Blood 0.99 mg/dL (0.60-1.20); Glomerular Filtration Rate >60 (60-); Glucose, Blood 113 mg/dL (70-99); Potassium, Blood 3.8 mmol/L (3.5-5.5); Sodium, Blood 138 mmol/L (136-145)
== END 2021-04-14 02:59 | disposition home or self-care (01) ==
LOC: ER
PROVIDERS: Student in an Organized Health Care Education/Training Program
DX: S01.81XA Laceration without foreign body of other part of head, initial encounter (principal); I10 Essential (primary) hypertension; J44.9 Chronic obstructive pulmonary disease, unspecified; Z88.0 Allergy status to penicillin; Z79.899 Other long term (current) drug therapy; W18.30XA Fall on same level, unspecified, initial encounter
CPT/HCPCS: 12013; 70450; 80048; 85025; 99283-25

== ENCOUNTER 2021-05-30 10:31 | Emergency (ER) | payer OTHER ==
[~2021-05-30] VITALS: Ht 175.3 cm; Wt 97.5 kg
[2021-05-30 10:52] LABS: BASOPHILS ABSOLUTE AUTO 0.06 K/mm3 (0.00-0.23); BASOPHILS PERCENT AUTO 1 % (0-2); EOSINOPHILS ABSOLUTE AUTO 0.08 K/mm3 (0.00-0.68); EOSINOPHILS PERCENT AUTO 1 % (0-6); Hematocrit 46.8 % (37.0-53.0); IMMATURE GRAN ABSOLUTE AUTO 0.05 K/mm3 (0.00-0.10); IMMATURE GRAN PERCENT AUTO 1 % (0-1); LYMPHOCYTES ABSOLUTE AUTO 2.31 K/mm3 (0.84-5.20); LYMPHOCYTES PERCENT AUTO 24 % (21-46); MONOCYTES ABSOLUTE AUTO 0.99 K/mm3 (0.16-1.47); MONOCYTES PERCENT AUTO 10 % (4-13); Mean Corpuscular HGB 29.7 pg (26.0-34.0); Mean Corpuscular HGB Conc 34.2 g/dL (31.5-36.5); Mean Corpuscular Volume 87 fL (80-100); Mean Platelet Volume 9.2 fL (9.1-12.4); NEUTROPHILS ABSOLUTE AUTO 6.01 K/mm3 (1.96-9.15); NEUTROPHILS PERCENT AUTO 63 % (41-73); Platelet Count 278 K/mm3 (150-400); RDW Coefficient Variation 13.2 % (11.7-14.2); RDW Standard Deviation 42.2 fL (35.1-46.3); Red Blood Cell Count 5.38 M/mm3 (4.30-5.90)
[2021-05-30 11:11] LABS: Alanine Aminotransfer (ALT/SGP 30 U/L (12-78); Albumin, Blood 3.7 g/dL (3.4-5.0); Albumin/Globulin Ratio 1.1 (0.8-1.8); Alk Phos 71 U/L (50-136); Anion Gap 4 mmol/L (6-16); Aspartate Aminotrans (AST/SGOT 58 U/L (12-37); Bilirubin, Total 0.8 mg/dL (0.1-1.0); Blood Urea Nitrogen 15 mg/dL (8-24); Bun/Creatinine Ratio 15.6 (12.0-20.0); CO2, Blood 31 mmol/L (21-32); Calcium, Blood 9.3 mg/dL (8.5-10.1); Chloride, Blood 95 mmol/L (98-108); Creatinine, Blood 0.96 mg/dL (0.60-1.20); Globulin, Blood 3.5 g/dL (2.2-4.0); Glomerular Filtration Rate >60 (60-); Glucose, Blood 102 mg/dL (70-99); Potassium, Blood 3.4 mmol/L (3.5-5.5); Sodium, Blood 130 mmol/L (136-145); Total Protein, Blood 7.2 g/dL (6.4-8.2)
[2021-05-30] MEDS ORDERED: LORA10ER PO (14:29)
[2021-05-30] MEDS ORDERED: VITAMIN D325 MC3 PO (14:30)
[2021-05-30] MEDS ORDERED: GUAI600T33 (14:31)
[2021-05-30] MEDS ORDERED: VALTREX1000 M1 PO (14:32)
[2021-05-30] MEDS ORDERED: BUDESONIDE1 MG/2 M1 (14:33)
[2021-05-30] MEDS ORDERED: Ultram50 MG PO (14:33)
[2021-05-30] MEDS ORDERED: IPRAT-ALBUT 0.5-3 ML (14:34)
[2021-05-30 15:14] LABS: Source, Urine Clean Catch
[2021-05-30 15:25] LABS: Appearance, Urine Clear (Clear); Bilirubin, Urine Neg (Neg); Blood, Urine 1+ (Neg); Color, Urine Yellow (P-Yellow); Glucose Qualitative, Urine Neg (Neg); Ketones, Urine Neg (Neg); Leukocyte Esterase, Urine Neg (Neg); Nitrite, Urine Neg (Neg); Protein, Urine 1+ (Neg); Specific Gravity, Urine 1.015 (1.003-1.022); Urobilinogen, Urine NORM (Normal)
[2021-05-30 15:53] LABS: Bacteria Few /hpf; Red Blood Cells, Urine 0-2 /hpf (0-2); Squamous Epithelial Cells Rare /hpf (Few); White Blood Cells, Urine Rare /hpf (0-5)
== END 2021-05-30 16:22 | disposition home or self-care (01) ==
LOC: ER 10:31
PROVIDERS: Physician Assistant
DX: R53.1 Weakness (principal); I10 Essential (primary) hypertension; J44.9 Chronic obstructive pulmonary disease, unspecified; Z88.0 Allergy status to penicillin; Z79.899 Other long term (current) drug therapy
CPT/HCPCS: 36415; 70450; 80053; 81001; 85025; 93005; 93010; 99284-25